=== PATIENT | female | born 2000 | race Caucasian/White ===

== ENCOUNTER 2021-07-12 17:41 | Emergency (ER) | payer OTHER ==
[~2021-07-12] VITALS: Ht 162.6 cm; Wt 46.5 kg
[2021-07-12 18:10] VITALS: BP 117/78
--- NOTE | 2021-07-12 18:13 | PHYS DOC ---
General Adult EDM: Chief Complaint: FACE PAIN HPI: HPI: ".. I was eating some hard candy.. and got this pain in my Lt jaw..." Pt. Patient is a 20 year old female who presents with above hx and complaints face / Lt mandible joint pain. Pain is somewhat reproducible with movement of the mandible and biting down hard. There does not appear to be any dental injury. There is no inflammation of the left parotid or TMJ area. There is some crepitation appreciated with movement of the mandible in the left. Patient normally healthy. Up-to-date vaccinations. No recent travel. Has had braces in the past. No S immunosuppression. No history of fever or chills. No specific ill contacts. Mother is at bedside. Review of Systems: Review of Systems: Constitutional: Denies fever or chills Eyes: Denies change in visual acuity HENT: Denies nasal congestion or sore throat. Complains of left mandible joint pain Respiratory: Denies cough or shortness of breath Cardiovascular: Denies chest pain or edema GI: Denies abdominal pain, nausea, vomiting, bloody stools or diarrhea : Denies dysuria Musculoskeletal: Denies back pain or joint pain Integument: Denies rash Neurologic: Denies headache, focal weakness or sensory changes Endocrine: Denies polyuria or polydipsia Lymphatic: Denies swollen glands Psychiatric: Denies depression or anxiety Family History: Family History: Noncontributory to presentation Current Medications: Current Meds: See nursing for home meds Allergies: Allergies: Allergies Coded Allergies Type Severity Reaction Last Updated Verified No Known Drug Allergies 07/12/21 No Physical Exam: PE: Constitutional: Well developed, well nourished, no acute distress, non-toxic appearance. [] HENT: Normocephalic, atraumatic, bilateral external ears normal, oropharynx moist, no oral exudates, nose normal. Tenderness in the TMJ or left mandible joint. Pain with biting activity. Appears to have excellent dentition Eyes: PERRLA, EOMI, conjunctiva normal, no discharge. [] Neck: Normal range of motion, no tenderness, supple, no stridor. [] Cardiovascular:Heart rate regular rhythm, no murmur [] Lungs & Thorax: Bilateral breath sounds equal at apex auscultation [] Abdomen: Bowel sounds normal, soft, no tenderness, no masses, no pulsatile masses. [] Skin: Warm, dry, no erythema, no rash. [] Back: No tenderness, no CVA tenderness. [] Extremities: No tenderness, no cyanosis, no clubbing, ROM intact, no edema. [] Neurologic: Alert and oriented X 3, normal motor function, normal sensory function, no focal deficits noted. [] Psychologic: Affect anxious, judgement normal, mood normal. [] EKG: EKG: [] Radiology/Procedures: Radiology/Procedures: [] Heart Score: C/O Chest Pain: N/A Risk Factors: Risk Factors: DM, Current or recent (<one month) smoker, HTN, HLP, family history of CAD, obesity. Risk Scores: Score 0 - 3: 2.5% MACE over next 6 weeks - Discharge Home Score 4 - 6: 20.3% MACE over next 6 weeks - Admit for Clinical Observation Score 7 - 10: 72.7% MACE over next 6 weeks - Early Invasive Strategies Course & Med Decision Making: Course & Med Decision Making Pertinent Labs and Imaging studies reviewed. (See chart for details) Ice packs as needed for the next 2 or 3 days. Take Tylenol and ibuprofen for pain. May need to follow-up with preparation plant repairer to evaluate TMJ. Follow-up p [facility] care. Return if any concerns. Soft diet for couple days. Impression: 1. Left mandible/TMJ pain [] Dragon Disclaimer: Dragon Disclaimer: This electronic medical record was generated, in whole or in part, using a voice recognition dictation system. Departure Departure: Referrals: NON,STAFF (PCP) Dragon Disclaimer This chart was dictated in whole or in part using Voice Recognition software in a busy, high-work load, and often noisy Emergency Department environment. It may contain unintended and wholly unrecognized errors or omissions. GAYLA JIMENES MD Jul 12, 2021 18:13
[2021-07-12] MEDS ORDERED: ACETAMINOPHEN 325 MG TABLET PO ONE (18:45)
[2021-07-12] MEDS ORDERED: IBUPROFEN 400 MG TABLET. PO ONE (18:45)
== END 2021-07-12 18:53 | disposition home or self-care (01) ==
LOC: ER 17:41
DX: M26.622 Arthralgia of left temporomandibular joint (principal)
CPT/HCPCS: 99283